=== PATIENT | female | born 1980 | race Native Hawaiian/Other Pacific Islander ===

== ENCOUNTER 2019-02-11 14:57 | Emergency (ER) | payer OTHER ==
[2019-02-11 16:05] LABS: ALT 14 U/L (9-52); AST 15 U/L (14-36); African American GFR (CKD) >90 (>60 ml/min/1.73 sqM); Albumin 3.8 g/dL (3.5-5.0); Alkaline Phosphatase 86 U/L (38-126); Anion Gap 11 mmol/L; Blood Urea Nitrogen 11 mg/dL (7-17); Calcium 9.2 mg/dL (8.4-10.2); Carbon Dioxide 19 mmol/L (22-30); Chloride 108 mmol/L (98-107); Glucose 116 mg/dL (74-99); Sodium 138 mmol/L (137-145); Total Bilirubin 0.1 mg/dL (0.2-1.3); Total Protein 7.1 g/dL (6.3-8.2)
[2019-02-11 16:12] LABS: Basophils % (A) 0 %; Eosinophils # (A) 0.2 k/uL (0-0.7); Eosinophils % (A) 2 %; HGB 12.1 gm/dL (11.4-16.0); Lymphocytes # (A) 1.8 k/uL (1.0-4.8); Lymphocytes % (A) 17 %; MCHC 32.8 g/dL (31.0-37.0); MCV 79.4 fL (80.0-100.0); Mean Platelet Volume 6.9; Monocytes # (A) 0.4 k/uL (0-1.0); Monocytes % (A) 4 %; Neutrophils # (A) 8.1 k/uL (1.3-7.7); Neutrophils % (A) 76 %; Platelet Count 290 k/uL (150-450); RBC 4.66 m/uL (3.80-5.40); RDW 15.7 % (11.5-15.5); WBC 10.7 k/uL (3.8-10.6)
[2019-02-11 16:17] LABS: Appearance,Urine Clear (Clear); Bilirubin,Urine Negative (Negative); Blood,Urine Large (Negative); Color,Urine Red; Glucose,Urine (UA) Negative (Negative); Ketones,Urine Negative (Negative); Leukocyte Esterase,Urine Moderate (Negative); Mucus,Urine Occasional /hpf; Nitrite,Urine Negative (Negative); PH, Urine 6.5 (5.0-8.0); Protein,Urine 1+ (Negative); RBC,Urine >182 /hpf (0-5); Specific Gravity,Urine 1.019 (1.001-1.035); Squamous Epithelial Cell,Urine 7 /hpf (0-4); Urobilinogen,Urine <2.0 mg/dL (<2.0)
[2019-02-11 16:21] LABS: HCG,Quantitative Serum 5505.8 mIU/mL
[2019-02-11] MEDS ORDERED: ONDANSETRON 4 MG/2 ML VIAL IVP STA ×2 (16:58→20:54)
[2019-02-11] MEDS ORDERED: MORPHINE SULFATE 4 MG/ML SYRINGE IVP STA (16:58)
--- NOTE | 2019-02-11 17:36 | US ---
EXAMINATION TYPE: Transabdominal DATE OF EXAM: 02/11/2019 4:50 PM COMPARISON: NONE CLINICAL HISTORY: Pain. Patient is 14 weeks having contractions and heavy bleeding with clot s EXAM PERFORMED: OBTA/OBTV EXAM MEASUREMENTS: GESTATIONAL AGE / DATING Physician Established: Not yet established Dates by LMP: (14 weeks/1 days) EDC: 08/11/2019 Dates by First Scan: No previous this is first scan Dates by Current Scan for: No IUP seen at this time MATERNAL ANATOMY Uterus: 14.4 x 6.5 x 6.8cm Right Ovary: not seen Left Ovary: not seen Post CDS / Adnexa: wnl Presence of free fluid: no GESTATION / SURVEY No viable gestation seen within fundal portion of [place] Endo = 1.6cm Thickened lining seen within JASON and cervix, probable products of conception. Limited imaging due to patients extreme pain and she was bearing down during exam. Unable to visualiz e ovarian tissue. Date of LMP: 11/04/2018 Beta HcG (if available): pending IMPRESSION: Endometrium is thickened with no definite intrauterine . Heterogeneous appearanc e the endometrium could represent hemorrhage or retained products. Correlate for missed or spontaneou s . Other etiologies not excluded. Correlate with serial beta hCG and pelvic ultrasound as cl inically warranted.
[2019-02-11] MEDS ORDERED: KETOROLAC 30 MG/ML 1 ML VIAL IVP STA (18:02)
--- NOTE | 2019-02-11 18:45 | ED ---
Female Urogenital HPI - General Chief complaint: OB/Uterine Contractions Stated complaint: 3 months & vaginal bleeding Time Seen by Provider: 02/11/19 15:11 Source: patient Mode of arrival: ambulatory - History of Present Illness Initial comments: Patient is a 38-year-old female presenting to the emergency Department with complaints of vaginal bleeding and severe abdominal cramping x 1 day. Patient states she is 14 weeks . Patient is visiting [place] from [place] where she lives. Patient states 2 weeks ago she had an ultrasound at her OB office because she was having some vaginal bleeding. Patient was told she had a uterine hematoma and she was to go to the ER if she started having severe bleeding and pain. Patient states she started passing some blood clots today and the vaginal bleeding has increased. Patient denies any nausea or vomiting, fever, chills. Patient states she did take some Tylenol before arrival but it has not helped with the pain. Patient is a . Patient is here with her . No other complaints at this time. - Related Data Previous Rx's Medication Instructions Recorded Ibuprofen [Motrin] 800 mg PO Q8HR PRN #30 tab 02/11/19 Ondansetron Odt [Zofran Odt] 4 mg PO Q8HR PRN #10 tab 02/11/19 Allergies Allergy/AdvReac Type Severity Reaction Status Date / Time No Known Allergies Allergy Verified 02/11/19 16:50 Review of Systems ROS Statement: Those systems with pertinent positive or pertinent negative responses have been documented in the HPI. ROS Other: All systems not noted in ROS Statement are negative. Past Medical History Past Medical History: No Reported History History of Any Multi-Drug Resistant Organisms: None Reported Past Surgical History: Section Past Psychological History: No Psychological Hx Reported Smoking Status: Never smoker Past Alcohol Use History: None Reported Past Drug Use History: None Reported General Exam - General Exam Comments Initial Comments: GENERAL: Well-appearing, well-nourished and in appears to be in pain. HEAD: Atraumatic, normocephalic. EYES: Pupils equal round and reactive to light, extraocular movements intact, sclera anicteric, conjunctiva are normal. ENT: TMs normal, nares patent, oropharynx clear without exudates. Moist mucous membranes. NECK: Normal range of motion, supple without lymphadenopathy or JVD. LUNGS: Breath sounds clear to auscultation bilaterally and equal. No wheezes rales or rhonchi. HEART: Regular rate and rhythm without murmurs, rubs or gallops. ABDOMEN: Tender to palpation of the lower abdomen, suprapubic area. Soft, normoactive bowel sounds. no rebound. No masses appreciated. : Pelvic exam was attempted however patient was in too much pain and was not able to be performed at this time. External exam reveals blood clots as well as active bleeding. EXTREMITIES: Normal range of motion, no pitting or edema. No clubbing or cyanosis. NEUROLOGICAL: Cranial nerves II through XII grossly intact. Normal speech, normal gait. PSYCH: Normal mood, normal affect. SKIN: Warm, Dry, normal turgor, no rashes or lesions noted. Course Vital Signs 02/11/19 02/11/19 02/11/19 15:02 17:12 19:31 Temperature 98.0 F 98 F Pulse Rate 90 83 83 Respiratory 16 16 18 Rate Blood Pressure 150/84 123/72 123/72 O2 Sat by Pulse 98 99 97 Oximetry 02/11/19 21:01 Temperature Pulse Rate 96 Respiratory 20 Rate Blood Pressure 141/87 O2 Sat by Pulse 98 Oximetry Medical Decision Making - Medical Decision Making Patient is a 38-year-old female presenting with vaginal bleeding and severe lower abdominal cramping x 1 day. Patient lives in [place] and is here in [facility]. Patient is 14 weeks . Patient states 2 weeks ago she was diagnosed with a uterine hematoma. Patient started having severe bleeding and cramping this morning and has been passing clots. On exam patient is passing large amount of clots in the ER, further pelvic exam was unable to be performed at this time secondary to patient's pain and discomfort. CBC ,CMP are within normal limits with a slight leukocytosis at 10.7. HCG quantitative is 5505. UA has 1+ protein, large amount of blood. OB ultrasound states that endometrium is thickened with no definitive IUP. Heterogeneous appearance could represent hemorrhage or retained products. After ultrasound was performed, patient passed a large amount of clot along with products of conception. Patient is continuing to have pain and bleeding. Her OB office in [place] was contacted and recommended her to be further evaluated by an OB mission planner here. Case discussed with Dr. Casey. Dr. Nguyen was notified and will see the patient. Dr. Nguyen performed examination and removed placenta from the cervix. Patient's symptoms have improved. Dr. Nguyen states that fili kulkarni is stable for discharge. She will remain in the area for at least 2 days. If she is feeling able she will return home to [place] and follow- up with her OB. It was discussed with patient that if she expresses increase in pain or bleeding or fever or chills to please return to the emergency department. Patient and patient's verbalize understanding of this. Patient will be discharged home with Zofran and Motrin. Vital signs remained stable during stay. - Lab Data Result diagrams: 02/11/19 15:43 02/11/19 15:43 Lab Results 02/11/19 02/11/19 02/11/19 Range/Units 15:43 15:43 15:43 WBC 10.7 H (3.8-10.6) k/uL RBC 4.66 (3.80-5.40) m/uL Hgb 12.1 (11.4-16.0) gm/dL Hct 37.0 (34.0-46.0) % MCV 79.4 L (80.0-100.0) fL MCH 26.0 (25.0-35.0) pg MCHC 32.8 (31.0-37.0) g/dL RDW 15.7 H (11.5-15.5) % Plt Count 290 (150-450) k/uL Neutrophils % 76 % Lymphocytes % 17 % Monocytes % 4 % Eosinophils % 2 % Basophils % 0 % Neutrophils # 8.1 H (1.3-7.7) k/uL Lymphocytes # 1.8 (1.0-4.8) k/uL Monocytes # 0.4 (0-1.0) k/uL Eosinophils # 0.2 (0-0.7) k/uL Basophils # 0.0 (0-0.2) k/uL Sodium 138 (137-145) mmol/L Potassium 4.0 (3.5-5.1) mmol/L Chloride 108 H (98-107) mmol/L Carbon Dioxide 19 L (22-30) mmol/L Anion Gap 11 mmol/L BUN 11 (7-17) mg/dL Creatinine 0.65 (0.52-1.04) mg/dL Est GFR (CKD-EPI)AfAm >90 (>60 ml/min/1.73 sqM) Est GFR (CKD-EPI)NonAf >90 (>60 ml/min/1.73 sqM) Glucose 116 H (74-99) mg/dL Calcium 9.2 (8.4-10.2) mg/dL Total Bilirubin 0.1 L (0.2-1.3) mg/dL AST 15 (14-36) U/L ALT 14 (9-52) U/L Alkaline Phosphatase 86 (38-126) U/L Total Protein 7.1 (6.3-8.2) g/dL Albumin 3.8 (3.5-5.0) g/dL HCG, Quant 5505.8 mIU/mL Urine Color Red Urine Appearance Clear (Clear) Urine pH 6.5 (5.0-8.0) Ur Specific [place] 1.019 (1.001-1.035) Urine Protein 1+ H (Negative) Urine Glucose (UA) Negative (Negative) Urine Ketones Negative (Negative) Urine Blood Large H (Negative) Urine Nitrite Negative (Negative) Urine Bilirubin Negative (Negative) Urine Urobilinogen <2.0 (<2.0) mg/dL Ur Leukocyte Esterase Moderate H (Negative) Urine RBC >182 H (0-5) /hpf Ur Squamous Epith Cells 7 H (0-4) /hpf Urine Mucus Occasional H (None) /hpf Blood Type Blood Type Recheck Antibody Screen Spec Expiration Date 02/11/19 Range/Units 20:14 WBC (3.8-10.6) k/uL RBC (3.80-5.40) m/uL Hgb (11.4-16.0) gm/dL Hct (34.0-46.0) % MCV (80.0-100.0) fL MCH (25.0-35.0) pg MCHC (31.0-37.0) g/dL RDW (11.5-15.5) % Plt Count (150-450) k/uL Neutrophils % % Lymphocytes % % Monocytes % % Eosinophils % % Basophils % % Neutrophils # (1.3-7.7) k/uL Lymphocytes # (1.0-4.8) k/uL Monocytes # (0-1.0) k/uL Eosinophils # (0-0.7) k/uL Basophils # (0-0.2) k/uL Sodium (137-145) mmol/L Potassium (3.5-5.1) mmol/L Chloride (98-107) mmol/L Carbon Dioxide (22-30) mmol/L Anion Gap mmol/L BUN (7-17) mg/dL Creatinine (0.52-1.04) mg/dL Est GFR (CKD-EPI)AfAm (>60 ml/min/1.73 sqM) Est GFR (CKD-EPI)NonAf (>60 ml/min/1.73 sqM) Glucose (74-99) mg/dL Calcium (8.4-10.2) mg/dL Total Bilirubin (0.2-1.3) mg/dL AST (14-36) U/L ALT (9-52) U/L Alkaline Phosphatase (38-126) U/L Total Protein (6.3-8.2) g/dL Albumin (3.5-5.0) g/dL HCG, Quant mIU/mL Urine Color Urine Appearance (Clear) Urine pH (5.0-8.0) Ur Specific [place] (1.001-1.035) Urine Protein (Negative) Urine Glucose (UA) (Negative) Urine Ketones (Negative) Urine Blood (Negative) Urine Nitrite (Negative) Urine Bilirubin (Negative) Urine Urobilinogen (<2.0) mg/dL Ur Leukocyte Esterase (Negative) Urine RBC (0-5) /hpf Ur Squamous Epith Cells (0-4) /hpf Urine Mucus (None) /hpf Blood Type O Positive Blood Type Recheck No Antibody Screen NEGATIVE Spec Expiration Date 02/14/20192313 Disposition Clinical Impression: Spontaneous Disposition: HOME SELF-CARE Condition: Stable Additional Instructions: Please return to the Emergency Department if symptoms worsen or any other con cerns. Follow-up with OB as discussed. Prescriptions: Ibuprofen [Motrin] 800 mg PO Q8HR PRN #30 tab PRN Reason: Pain Ondansetron Odt [Zofran Odt] 4 mg PO Q8HR PRN #10 tab PRN Reason: Nausea Is patient prescribed a controlled substance at d/c from ED?: No Referrals: None,Stated [Primary Care Provider] - 1-2 days
[2019-02-11] MEDS ORDERED: HYDROmorphone 1 MG/ML 1 ML SYRINGE IVP STA (19:09)
[2019-02-11 19:32] VITALS: TEMP 98
--- NOTE | 2019-02-11 21:00 | P.OBCN ---
History of Present Illness Consult date: 02/11/19 Requesting physician: Familia Casey Reason for consult: early problem Chief complaint: Vaginal bleeding and . History of present illness: This patient is a pleasant 38-year-old 5 para 3 female estimated date of confinement 08/17/2019 who presented to the emergency department earlier this afternoon with complaints of vaginal bleeding, and pain. Patient's history is such that her care is in [place] and she states that recently she had some vaginal spotting and went to her [facility] and was found to have what sounds to be a subchorionic bleed. This apparently subsided and they traveled to [place] to see their family. Patient began bleeding and cramping heavily today and presented to the emergency department. Patient reports that her has otherwise been uncomplicated. It was not a planned but they were happy. Patient has been scheduled to have some genetic testing done this next week. Past obstetrical history is significant for 3 previous sections. Past medical history is unremarkable otherwise. Patient did pass some tissue here in the ER and I was called to evaluate this patient. Ultrasound shows no evidence of an intrauterine . The ultrasound done earlier this evening showed what appeared to be thickening of the lower uterine segment to 1.6 cm. Review of Systems Constitutional: Reports as per HPI Genitourinary: Reports abnormal vaginal bleeding, Reports pelvic pain, Reports Menstruation: Reports as per HPI Past Medical History Past Medical History: No Reported History History of Any Multi-Drug Resistant Organisms: None Reported Past Surgical History: Section, Cholecystectomy Past Anesthesia/Blood Transfusion Reactions: No Reported Reaction Past Psychological History: No Psychological Hx Reported Smoking Status: Never smoker Past Alcohol Use History: None Reported Past Drug Use History: None Reported Medications and Allergies Home Medications Medication Instructions Recorded Confirmed Type No Known Home Medications 02/11/19 02/11/19 History Allergies Allergy/AdvReac Type Severity Reaction Status Date / Time No Known Allergies Allergy Verified 02/11/19 16:50 Exam Vital Signs Temp Pulse Resp BP Pulse Ox 02/11/19 19:31 98 F 83 18 123/72 97 02/11/19 17:12 83 16 123/72 99 02/11/19 15:02 98.0 F 90 16 150/84 98 Intake and Output 02/11/19 02/11/19 02/11/19 06:59 14:59 22:59 Other: Weight 92.079 kg - OBG Physical Exam Abdomen: Abdomen soft nontender without rebound and guarding. Vagina: Speculum exam shows a approximately 5 cm piece of tissue consistent with placenta. It does appear to be completely intact. Cervix is slightly dilated and upon removal of this tissue there is not any significant bleeding. Cervix: no lesion, no discharge Uterus: enlarged Results Blood type is O+, hemoglobin is 12.1, beta-hCG is 5505. Result Diagrams: 02/11/19 15:43 02/11/19 15:43 Abnormal Lab Results - Last 24 Hours (Table) 02/11/19 02/11/19 02/11/19 Range/Units 15:43 15:43 15:43 WBC 10.7 H (3.8-10.6) k/uL MCV 79.4 L (80.0-100.0) fL RDW 15.7 H (11.5-15.5) % Neutrophils # 8.1 H (1.3-7.7) k/uL Chloride 108 H (98-107) mmol/L Carbon Dioxide 19 L (22-30) mmol/L Glucose 116 H (74-99) mg/dL Total Bilirubin 0.1 L (0.2-1.3) mg/dL Urine Protein 1+ H (Negative) Urine Blood Large H (Negative) Ur Leukocyte Esterase Moderate H (Negative) Urine RBC >182 H (0-5) /hpf Ur Squamous Epith Cells 7 H (0-4) /hpf Urine Mucus Occasional H (None) /hpf Assessment and Plan Assessment: This is a pleasant 38-year-old 5 para 3 female 13-1/2 weeks gestation with onset of vaginal bleeding and cramping. Patient appears to have had a complete at this time. I did examine the initial tissue passed and I did remove what appears to be the placenta from the cervix and vaginal vault. Bleeding at this time has significantly subsided and the patient's pain has markedly improved as well. I did emphasize to the patient and her the importance of follow-up. I recommended that they stay in [place] or this general area for at least 24-48 hours. If her bleeding continues to subside and she is comfortable then she can return back as planned follow-up with her [facility] for serial hCGs. She understands that if she were to have increased bleeding with hCGs were falling she may need to have a D&C however I do not think this is indicated at this time because the tissue appears to be completely passed. Patient's blood type is Rh+. All the patient's questions are answered and I did give her my number to call 24 hours a day with any questions or concerns. (1) Spontaneous Current Visit: Yes Status: Acute Code(s): O03.9 - COMPLETE OR UNSP SPONTANEOUS WITHOUT COMPLICATION SNOMED Code(s): 71984939
[2019-02-11 21:02] VITALS: PULSE 96; RESP 20
[2019-02-11 21:52] VITALS: BP 112/69
== END 2019-02-11 22:40 | disposition home or self-care (01) ==
LOC: EC 14:57
DX: O03.9 Complete or unspecified spontaneous abortion without complication (principal); Z3A.14 14 weeks gestation of pregnancy
CPT/HCPCS: 36415; 76801; 76817; 80053; 81001; 84702; 85025; 86850; 86900; 86901; 96374; 96375; 96376; 99284